=== PATIENT | male | born 1985 | race African-American/Black ===

== ENCOUNTER 2017-06-30 04:41 | Emergency (ER) | payer BC ==
[~2017-06-30] VITALS: Ht 182.9 cm; Wt 88.1 kg
[2017-06-30 06:49] LABS: INFLUENZA A VIRAL ANTIGEN NEGATIVE; INFLUENZA B VIRAL ANTIGEN NEGATIVE
[2017-06-30] MEDS ORDERED: PREDNISONE50 MG PO (07:01)
[2017-06-30] MEDS ORDERED: PROVENTIL HFA6.7 GM IH (07:01)
[2017-06-30 07:11] VITALS: BP 101/64
== END 2017-06-30 07:16 | disposition home or self-care (01) ==
LOC: EME 04:41
PROVIDERS: Emergency Medicine
DX: J20.8 Acute bronchitis due to other specified organisms (principal); J45.909 Unspecified asthma, uncomplicated
CPT/HCPCS: 71020; 87502; 87651 90; 94640; 99281; 99285; J1885